=== PATIENT | female | born 1990 | race Caucasian/White ===

== ENCOUNTER 2016-12-15 19:47 | Emergency (ER) | payer SELFPAY ==
[~2016-12-15] VITALS: Ht 162.6 cm; Wt 46.9 kg
[~2016-12-15 19:47] MED LIST: METR500T PO; PRENATAL VITAMINS PO
[2016-12-15 21:43] VITALS: BP 104/73
== END 2016-12-15 21:45 | disposition home or self-care (01) ==
LOC: ED 21:15
DX: S16.1XXA Strain of muscle, fascia and tendon at neck level, initial encounter (principal); S80.211A Abrasion, right knee, initial encounter; S80.212A Abrasion, left knee, initial encounter; V43.51XA Car driver injured in collision with sport utility vehicle in traffic accident, initial encounter; Y93.89 Activity, other specified; Y92.89 Other specified places as the place of occurrence of the external cause; Y99.8 Other external cause status
CPT/HCPCS: 72072; 72110; 72125

== ENCOUNTER 2017-05-05 14:59 | Emergency (ER) | payer OTHER ==
[~2017-05-05] VITALS: Ht 162.6 cm; Wt 47.5 kg
[2017-05-05] MEDS ORDERED: SODIUM CHLORIDE 0.9% 1,000ML IVBOLUS ONE (15:30)
[2017-05-05] MEDS ORDERED: SODIUM CHLORIDE FLUSH 10ML SYR IVF ONE (15:30)
[2017-05-05 16:27] LABS: HEMATOCRIT 32.2 % (34.6-47.8); HEMOGLOBIN 11.2 g/dL (11.7-16.4); WHITE BLOOD COUNT 5.6 x10^3/uL (3.4-10)
[2017-05-05 16:37] LABS: ASPARTATE AMINO TRANSFERASE 15 U/L (15-37); BLOOD UREA NITROGEN 6 mg/dL (7-18)
[2017-05-05 17:23] VITALS: BP 87/61
== END 2017-05-05 18:32 | disposition home or self-care (01) ==
LOC: ED 16:37
DX: O20.0 Threatened abortion (principal); Z3A.14 14 weeks gestation of pregnancy
CPT/HCPCS: 36415; 76801; 80053; 81003; 84702; 85025; 86901; 96360; 99285; J7030

== ENCOUNTER 2017-07-06 14:14 | Observation (INO) | payer MEDICAID, OTHER ==
[~2017-07-06] VITALS: Ht 162.6 cm; Wt 50.0 kg
[2017-07-06] MEDS ORDERED: PREN1TAB60 PO (14:20)
[2017-07-06 14:23] VITALS: BP 101/59
[2017-07-06 14:59] VITALS: BP 101/59
[2017-07-06 15:11] LABS: MICROSCOPIC NOT IND
[2017-07-06 15:23] LABS: AMPHETAMINE SCREEN, URINE Negative (Negative); BARBITURATE SCREEN, URINE Negative (Negative); BENZODIAZEPINE SCREEN, URINE Negative (Negative); CANNABINOID SCREEN, URINE Negative (Negative); COCAINE SCREEN, URINE Negative (Negative); METHADONE SCREEN, URINE Negative (Negative); OPIATE SCREEN, URINE Negative (Negative)
== END 2017-07-06 19:16 | disposition home or self-care (01) ==
LOC: LDOP 14:14 → LDIP 16:00
PROVIDERS: ADMIT Obstetrics & Gynecology; ATTEND Obstetrics & Gynecology
DX: O26.892 Other specified pregnancy related conditions, second trimester (principal); R10.2 Pelvic and perineal pain; Z3A.23 23 weeks gestation of pregnancy; Z83.3 Family history of diabetes mellitus
CPT/HCPCS: 59025; 76805; 80307; 81003; 87086; 87491; 87591; 99211; G0378; G0463

== ENCOUNTER 2017-12-12 18:55 | Emergency (ER) | payer MEDICAID ==
[~2017-12-12] VITALS: Ht 162.6 cm; Wt 47.9 kg
[~2017-12-12 18:55] MED LIST changes: +PREN1TAB60 PO
[2017-12-12 18:59] VITALS: BP 93/61
== END 2017-12-12 19:50 | disposition home or self-care (01) ==
LOC: ED 19:15
DX: K64.4 Residual hemorrhoidal skin tags (principal); K59.00 Constipation, unspecified; Z90.49 Acquired absence of other specified parts of digestive tract
CPT/HCPCS: 99283

== ENCOUNTER 2018-01-14 21:15 | Emergency (ER) | payer SELFPAY ==
[~2018-01-14] VITALS: Ht 157.5 cm; Wt 50.0 kg
[2018-01-14 21:19] VITALS: BP 101/58
== END 2018-01-14 22:04 | disposition home or self-care (01) ==
LOC: ED 21:58
DX: L03.116 Cellulitis of left lower limb (principal); S90.512A Abrasion, left ankle, initial encounter; Z90.49 Acquired absence of other specified parts of digestive tract; X58.XXXA Exposure to other specified factors, initial encounter; Y93.89 Activity, other specified; Y99.8 Other external cause status; Y92.009 Unspecified place in unspecified non-institutional (private) residence as the place of occurrence of the external cause
CPT/HCPCS: 99283

== ENCOUNTER 2018-10-17 13:00 | Emergency (ER) | payer OTHER ==
[~2018-10-17] VITALS: Ht 157.5 cm; Wt 50.2 kg
--- NOTE | 2018-10-17 13:30 | NUR ---
TRIAGE ASSESSMENT DISCUSSED IWTH DR HANSEN. PT OK TO GO TO [facility] FOR EVALUATION.
[2018-10-17] MEDS ORDERED: SODIUM CHLORIDE FLUSH 10ML SYR IVF ONE (14:30)
[2018-10-17] MEDS ORDERED: OMNIPAQUE 350 MG/ML, 100ML BOTTLE ONE (15:15)
--- NOTE | 2018-10-17 16:00 | NUR ---
PT. WAS GIVEN DISCHARGE INSTRUCTIONS AND SCRIPTS WITH UNDERSTANDING VERBALIZED ALONG WITH WILLINGNESS TO COMPLY. PT.'S IV WAS DCD', CATH TIP INTACT. PRESSURE HELD WITH HEMOSTASIS ACHIEVED. PT. WAS AMBULATORY TO THE DISCHARGE DESK. VSS.
[2018-10-17 16:02] VITALS: BP 110/60
== END 2018-10-17 16:06 | disposition home or self-care (01) ==
LOC: ED 16:00
DX: S16.1XXA Strain of muscle, fascia and tendon at neck level, initial encounter (principal); S09.8XXA Other specified injuries of head, initial encounter; V59.49XA Driver of pick-up truck or van injured in collision with other motor vehicles in traffic accident, initial encounter; Y93.89 Activity, other specified; Y92.89 Other specified places as the place of occurrence of the external cause; Y99.8 Other external cause status
CPT/HCPCS: 70450; 72072; 72110; 72125; 74177; 99284; Q9967

== ENCOUNTER 2019-06-10 09:33 | Emergency (ER) | payer SELFPAY ==
[~2019-06-10] VITALS: Ht 157.5 cm; Wt 52.0 kg
--- NOTE | 2019-06-10 09:36 | NUR ---
called once, in bathroom.
--- NOTE | 2019-06-10 09:51 | NUR ---
CUE SELECTOR: PT AMBULATORY WITH STEADY GAIT TO ROOM AT THIS TIME.
[2019-06-10] MEDS ORDERED: ONDANSETRON 2MG/ML, 2ML IVPush ONE (10:00)
[2019-06-10] MEDS ORDERED: KETOROLAC 30 MG/1 ML IM ONE (10:00)
[2019-06-10] MEDS ORDERED: ONDANSETRON ODT 4 MG ONE (10:01)
[2019-06-10] MEDS ORDERED: KETOROLAC 30 MG/1 ML ONE (10:01)
--- NOTE | 2019-06-10 10:11 | NUR ---
PT HERE WITH C/O VAGINAL BLEEDING (PASSING CLOTS) AND CRAMPING THAT STARTED LAST NIGHT. PT STATES SHE TOOK A TEST AT HOME AND IT WAS "FAINTLY POSITIVE." PT AAO X 4, NAD, ROOM AIR, CALL LIGHT WITHIN REACH AND SIDERAIL X [address] MD AT BEDSIDE FOR EXAM.
--- NOTE | 2019-06-10 10:12 | NUR ---
PT MEDICATED PER HANS. STRAIGHT CATH PERFORMED BY THIS RN USING STERILE TECHNIQUE, PT TOLERATED WELL.
--- NOTE | 2019-06-10 10:16 | NUR ---
LAB AT BEDSIDE.
[2019-06-10 10:29] LABS: MICROSCOPIC INDICATED
[2019-06-10] MEDS ORDERED: ONDANSETRON ODT 4 MG PO ONE (10:30)
[2019-06-10 10:36] LABS: CULTURE INDICATED? NO
[2019-06-10 11:14] LABS: BASOPHILS # (AUTO) 0.01 x10^3/uL (0-0.1); BASOPHILS % (AUTO) 0 % (0-1); EOSINOPHILS % (AUTO) 0 % (1-7); LYMPHOCYTES # (AUTO) 0.84 x10^3/uL (1-3.4); LYMPHOCYTES % (AUTO) 9 % (22-44); MD NO; MEAN CORPUSCULAR HEMOGLOBIN 31.8 pg (27.0-34.8); MEAN CORPUSCULAR HGB CONC 34.2 g/dL (32.4-35.8); MEAN CORPUSCULAR VOLUME 93.1 fL (80-100); MEAN PLATELET VOLUME 10.5 fL (7.4-10.4); MONOCYTES # (AUTO) 0.46 x10^3/uL (0.2-0.8); MONOCYTES % (AUTO) 5 % (2-9); NEUTROPHILS # (AUTO) 8.51 x10^3/uL (1.8-6.8); NEUTROPHILS % (AUTO) 87 % (42-75); PLATELET COUNT 222 x10^3/uL (130-400); RED CELL DISTRIBUTION WIDTH 12.5 % (9.6-15.2)
[2019-06-10] MEDS ORDERED: HYDROmorphone 1 MG/ML, 1ML INJ IM ONE (11:30)
--- NOTE | 2019-06-10 11:31 | NUR ---
PT TO US.
--- NOTE | 2019-06-10 12:02 | NUR ---
PT BACK FROM US, AT BEDSIDE FOR REASSESSMENT. PLAN TO HOLD IM DILAUDID AND GIVE PO TYLENOL PT HAS 8 WEEK IUP.
[2019-06-10] MEDS ORDERED: ACETAMINOPHEN 500 MG TABLET ONE (12:11)
--- NOTE | 2019-06-10 12:12 | NUR ---
PT MEDICATED PER ORDERS.
[2019-06-10 12:17] VITALS: BP 96/61
--- NOTE | 2019-06-10 12:17 | NUR ---
Patient/Caregiver given discharge instructions and they have confirmed that they understand the instructions. Patient ambulatory with steady gait.
[2019-06-10] MEDS ORDERED: ACETAMINOPHEN 500 MG TABLET PO ONE (12:30)
== END 2019-06-10 12:33 | disposition home or self-care (01) ==
LOC: ED 12:00
DX: O20.0 Threatened abortion (principal); Z3A.08 8 weeks gestation of pregnancy
CPT/HCPCS: 36415; 76801; 81001; 84702; 85025; 96372; 99284; J1885; Q0162; 84703

== ENCOUNTER 2019-07-23 17:42 | Emergency (ER) | payer SELFPAY ==
[~2019-07-23] VITALS: Ht 160 cm; Wt 49.9 kg
--- NOTE | 2019-07-23 17:50 | NUR ---
ADULT LITERACY INSTRUCTOR: PT AMBULATORY WITHOUT DIFFICULTY. TO WAIT IN LOBBY FOR ROOM. CONFIRMED IUP 06/10
--- NOTE | 2019-07-23 18:38 | NUR ---
southeast regional sales manager: Pt to ED room 14 from lobby at this time
--- NOTE | 2019-07-23 18:59 | NUR ---
THIS IS A 28 YO FEMALE COMING IN FOR BILATERAL LOWER QUADRANT CRAMPING PAIN RADIATING UP BACK ACCOMPANIED BY VAGINAL BLEEDING X1 WEEK. PATIENT STATES BLEEDING STARTED A WEEK AGO WITH A LITTLE SPOTTING, AND LAST NIGHT PATIENT SOAKED 4 PADS WITHIN 1 HOUR. PATIENT WAS SEEN HERE May FOR VAGINAL BLEEDING, HAD POSITIVE TEST WITH ESTIMATED 7-8 WEEKS GESTATION. PATIENT SPEAKING IN FULL SENTENCES, C/O MILD EPIGASTRIC DISCOMFORT BUT NOT PAIN, A&OX4, VSS AT THIS TIME, NAD, SPO2 AND BP MOITORING IN PLACE. CALL LIGHT IN REACH, DENIES NEEDS AT THIS TIME. MD TO ROOM
[2019-07-23 19:20] LABS: BASOPHILS # (AUTO) 0.03 x10^3/uL (0-0.1); BASOPHILS % (AUTO) 1 % (0-1); EOSINOPHILS # (AUTO) 0.11 x10^3/uL (0-0.4); EOSINOPHILS % (AUTO) 2 % (1-7); LYMPHOCYTES # (AUTO) 1.34 x10^3/uL (1-3.4); LYMPHOCYTES % (AUTO) 23 % (22-44); MD NO; MEAN CORPUSCULAR HGB CONC 34.5 g/dL (32.4-35.8); MEAN CORPUSCULAR VOLUME 89.8 fL (80-100); MEAN PLATELET VOLUME 8.8 fL (7.4-10.4); MONOCYTES # (AUTO) 0.37 x10^3/uL (0.2-0.8); MONOCYTES % (AUTO) 6 % (2-9); NEUTROPHILS # (AUTO) 3.92 x10^3/uL (1.8-6.8); NEUTROPHILS % (AUTO) 68 % (42-75); PLATELET COUNT 296 x10^3/uL (130-400); RED CELL DISTRIBUTION WIDTH 13.3 % (9.6-15.2)
[2019-07-23 19:31] LABS: ALANINE AMINOTRANSFERASE 17 U/L (12-78); ALBUMIN 2.7 g/dL (3.4-5.0); ANION GAP 5 mmol/L (5-15); CALCIUM 8.4 mg/dL (8.5-10.1); CHLORIDE 106 mmol/L (98-107); CREATININE 0.62 mg/dL (0.55-1.02)
[2019-07-23 19:51] LABS: ALKALINE PHOSPHATASE 180 U/L (45-117); BILIRUBIN,TOTAL 0.3 mg/dL (0.2-1.0); TOTAL PROTEIN 7.1 g/dL (6.4-8.2)
--- NOTE | 2019-07-23 20:07 | NUR ---
PATIENT BACK FROM
[2019-07-23 20:38] VITALS: BP 87/60
--- NOTE | 2019-07-23 20:39 | NUR ---
Patient/Caregiver given discharge instructions and they have confirmed that they understand the instructions and will follow up with OB. Patient ambulatory with steady gait.
== END 2019-07-23 20:52 | disposition home or self-care (01) ==
LOC: ED 19:00
DX: O20.0 Threatened abortion (principal); Z3A.13 13 weeks gestation of pregnancy
CPT/HCPCS: 36415; 76801; 80053; 84702; 85025; 86901; 99284

== ENCOUNTER 2019-08-02 14:24 | Emergency (ER) | payer SELFPAY ==
[~2019-08-02] VITALS: Ht 154.9 cm; Wt 50.0 kg
[2019-08-02] MEDS ORDERED: SODIUM CHLORIDE 0.9% 1,000 ML IV ONE (15:10)
[2019-08-02] MEDS ORDERED: ONDANSETRON 2MG/ML, 2ML ONE (15:15)
[2019-08-02] MEDS ORDERED: ACETAMINOPHEN 325 MG TABLET ONE (15:15)
--- NOTE | 2019-08-02 15:15 | NUR ---
Apap administered per emar, then piv placed from which 1 set of blood cultures obtained (lab at bedside to obtain second set of blood cultures as well type and screen/lactate, etc. then medicated with zofran and 1l ns bolus Placed on nurse epidemiologist/updated on estimated poc
[2019-08-02] MEDS ORDERED: ACETAMINOPHEN 325 MG TABLET PO ONE (15:30)
[2019-08-02] MEDS ORDERED: SODIUM CHLORIDE FLUSH 10ML SYR IVF ONE (15:30)
[2019-08-02] MEDS ORDERED: SODIUM CHLORIDE 0.9% 1,000ML IVBOLUS ONE (15:30)
[2019-08-02] MEDS ORDERED: PNV1TAB.5 PO (15:43)
[2019-08-02] MEDS ORDERED: IRON1TAB60 PO (15:43)
[2019-08-02 15:51] LABS: BASOPHILS # (AUTO) 0.01 x10^3/uL (0-0.1); BASOPHILS % (AUTO) 0 % (0-1); EOSINOPHILS % (AUTO) 0 % (1-7); LYMPHOCYTES # (AUTO) 0.42 x10^3/uL (1-3.4); LYMPHOCYTES % (AUTO) 5 % (22-44); MD NO; MEAN CORPUSCULAR HEMOGLOBIN 31.3 pg (27.0-34.8); MEAN CORPUSCULAR HGB CONC 34.4 g/dL (32.4-35.8); MEAN CORPUSCULAR VOLUME 90.9 fL (80-100); MEAN PLATELET VOLUME 8.6 fL (7.4-10.4); MONOCYTES % (AUTO) 4 % (2-9); NEUTROPHILS % (AUTO) 91 % (42-75); PLATELET COUNT 205 x10^3/uL (130-400); RED CELL DISTRIBUTION WIDTH 13.4 % (9.6-15.2)
[2019-08-02 15:58] LABS: ALBUMIN 2.5 g/dL (3.4-5.0); ANION GAP 10 mmol/L (5-15); CHLORIDE 102 mmol/L (98-107)
[2019-08-02] MEDS ORDERED: ONDANSETRON 2MG/ML, 2ML IVPush ONE (16:00)
--- NOTE | 2019-08-02 16:13 | NUR ---
BREAK RN: NS BOLUS INITIATED NOTED. BP 85/47, PT ASYMPTOMATIC, SITTING UP IN GURNEY, WATCHING TV. DENIES PAIN. CALL LIGHT W/I REACH
[2019-08-02 16:17] LABS: ALANINE AMINOTRANSFERASE 18 U/L (12-78); ALKALINE PHOSPHATASE 177 U/L (45-117); BILIRUBIN,TOTAL 0.8 mg/dL (0.2-1.0); CREATININE 0.64 mg/dL (0.55-1.02); TOTAL PROTEIN 6.7 g/dL (6.4-8.2)
[2019-08-02 16:36] LABS: MICROSCOPIC INDICATED
[2019-08-02 16:37] LABS: CULTURE INDICATED? YES
--- NOTE | 2019-08-02 16:47 | NUR ---
2nd of ns comlete, then started 250ml/hr ns iv maintanence started Ultrasound at bedside
--- NOTE | 2019-08-02 17:17 | NUR ---
BACK FROM ULTRASOUND COLOR/NAUSEA/HR/TEMP IMPROVED. HOWEVER SBP REMAINS 85-90. PATIENT REPORTS THIS IS NORMAL FOR HER (ITS USUALLY LIKE 80 ACTUALLY). NOT ORTHOSTATIC WITH WALKING
[2019-08-02 17:47] VITALS: BP 86/49
[2019-08-03] MEDS ORDERED: FERR-46 PO (14:44)
[2019-08-03] MEDS ORDERED: PNV1TAB.5 PO (14:44)
== END 2019-08-02 18:30 | disposition home or self-care (01) ==
LOC: ED 15:35
DX: O26.892 Other specified pregnancy related conditions, second trimester (principal); Z3A.14 14 weeks gestation of pregnancy
CPT/HCPCS: 36415; 76801; 80053; 81001; 83605; 84145; 84702; 85025; 86850; 86900; 87040; 87077; 87086; 93005; 96374; 99285; J2405; J7030; 87186